=== PATIENT | female | born 1970 | race Caucasian/White ===

== ENCOUNTER 2018-10-13 17:41 | Emergency (ER) | payer OTHER ==
[2018-10-13 18:27] LABS: Basophils % (Auto) 0.5 % (0.0-1.8); Eosinophils # (Auto) 0.3 K/mm3 (0.0-0.4); Eosinophils % (Auto) 3.1 % (0.0-4.3); Hematocrit 35.9 % (30.3-42.9); Hemoglobin 11.4 gm/dl (10.1-14.3); Lymphocytes # (Auto) 2.3 K/mm3 (1.2-5.4); Mean Corpuscular HGB Conc 32 % (30-34); Mean Corpuscular Volume 76 fl (79-97); Monocytes # (Auto) 0.4 K/mm3 (0.0-0.8); Monocytes % (Auto) 4.6 % (0.0-7.3); Platelet Count 228 K/mm3 (140-440); Red Blood Count 4.72 M/mm3 (3.65-5.03)
[2018-10-13 18:46] LABS: BUN/Creatinine Ratio 10; Blood Urea Nitrogen 8 mg/dL (7-17); Calcium 9.6 mg/dL (8.4-10.2); Hemolysis Index 7
--- NOTE | 2018-10-13 19:21 | Emergency Department Report ---
ED Syncope HPI - General Chief Complaint: Syncope Stated Complaint: SYNCOPE Time Seen by Provider: 10/13/18 17:51 - History of Present Illness Initial Comments: Mrs. Reaves is a 48-year-old female with history of borderline diabetes, GERD, mental disorder who presents from [facility] with recurrent syncope. She has been evaluated by her primary physician according to her report for recurrent syncope. CT head and rheumatological workup have been recommended. However she is currently under 1013 involuntary commitment at [facility]. She's had 2 episodes of syncope. She denies preceding chest pain or palpitations. She denies shortness of breath. She denies leg pain. She denies recent travel. She is very frustrated because she had not been sent to the ER earlier. She states that for the last 2 dasy she felt something was wrong. Timing/Prior Episodes: recent history, remote history Precipitating Factors: Positive: none Context: sitting, standing, emotional stress Loss of Consciousness: brief (seconds) Current Symptoms: back to normal - Related Data Allergies/Adverse Reactions: Allergies Penicillins Allergy (Verified 10/13/18 18:04) Unknown ED Review of Systems ROS: Stated complaint: SYNCOPE Other details as noted in HPI Comment: All other systems reviewed and negative Constitutional: denies: diaphoresis, fever, malaise Respiratory: denies: cough, shortness of breath ED Past Medical Hx - Past Medical History Previous Medical History?: Yes Hx Diabetes: Yes (PreDM) Hx Psychiatric Treatment: Yes (Depression) - Surgical History Past Surgical History?: Yes Additional Surgical History: abd - Social History Smoking Status: Current Some Day Smoker Substance Use Type: None ED Physical Exam - General Limitations: No Limitations General appearance: alert, in no apparent distress - Head Head exam: Present: atraumatic, normocephalic - Eye Eye exam: Present: normal appearance - ENT ENT exam: Present: mucous membranes moist - Neck Neck exam: Present: normal inspection, full ROM - Respiratory Respiratory exam: Present: normal lung sounds bilaterally. Absent: respiratory distress, wheezes, rales, rhonchi - Cardiovascular Cardiovascular Exam: Present: regular rate, normal rhythm, normal heart sounds. Absent: systolic murmur, diastolic murmur, rubs, gallop - GI/Abdominal GI/Abdominal exam: Present: soft, normal bowel sounds. Absent: distended, tenderness, guarding, rebound - Extremities Exam Extremities exam: Present: normal inspection - Back Exam Back exam: Present: normal inspection - Neurological Exam Neurological exam: Present: alert, oriented X3 - Psychiatric Psychiatric exam: Present: normal affect, normal mood - Skin Skin exam: Present: warm, dry, intact, normal color. Absent: rash ED Course Vital Signs 10/13/18 10/13/18 17:50 18:42 Temperature 98.9 F Pulse Rate 80 98 H Respiratory 12 16 Rate Blood Pressure 133/76 Blood Pressure 130/36 [Right] O2 Sat by Pulse 98 98 Oximetry ED Medical Decision Making - Lab Data Result diagrams: 10/13/18 18:07 10/13/18 18:07 - EKG Data -: EKG Interpreted by Me EKG shows normal: sinus rhythm, axis, intervals, QRS complexes, ST-T waves Rate: normal - EKG Data 10/13/18 19:18 NSR nl rate nl axis nl intervals no ST-T signs of ischemia no ST elevation rate 80 bpm - Radiology Data Radiology results: report reviewed interpreted by me: CT head: NAP - Medical Decision Making Recurrent syncope: PERC negative for PE. Nurse observed brief syncopal episode. Lasted 5 seconds. No arrhythmia on animal physiologist during the episode. No indication of seizure. dc'd back to [facility] Critical care attestation.: If time is entered above; I have spent that time in minutes in the direct care of this critically ill patient, excluding procedure time. ED Disposition Clinical Impression: Syncope Disposition: [id number]/TX-[id number] ANOTHER TYPE HLTHCARE Is pt being admited?: No Does the pt Need Aspirin: No Condition: Stable Instructions: Syncope (ED)
[2018-10-13] MEDS ORDERED: ZITHROMAX PO ONE (19:46)
[2018-10-13] MEDS ORDERED: DELTASONE PO ONE (19:46)
--- NOTE | 2018-10-13 20:04 | Cat Scan Report ---
PROCEDURE: CT HEAD/BRAIN WO CON TECHNIQUE: Computerized tomography of the head was performed without contrast material. CT DOSE LENGTH PRODUCT: 1035.5 mGycm HISTORY: syncope COMPARISONS: None . FINDINGS: Brain: Brain density appears normal. No evidence of intracranial hemorrhage. No parenchymal hemorr kelly, mass lesions or mass effect are seen. No abnormal extra-axial fluid collects or masses are see n. There is minimal nonspecific mineralization of the basal ganglia. Ventricles: Ventricles are normal size and are midline. Bone Windows: No evidence of skull fracture. Paranasal sinuses: Mucosal thickening visualized in the medial aspect the right frontal sinus. Visual ized paranasal sinuses otherwise are clear. Mastoid air cells: Clear. IMPRESSION: Negative unenhanced CT scan of the brain. Minimal paranasal sinus disease as described. This document is electronically signed by Andrea Lawrence MD., October 13 2018 08:02:19 PM ET
[2018-10-13 20:50] VITALS: BP 128/77
== END 2018-10-13 21:00 | disposition other institution (70) ==
LOC: ED 17:41
DX: R55 Syncope and collapse (principal); F17.200 Nicotine dependence, unspecified, uncomplicated; F32.9 Major depressive disorder, single episode, unspecified; E11.9 Type 2 diabetes mellitus without complications; K21.9 Gastro-esophageal reflux disease without esophagitis; Z88.0 Allergy status to penicillin
CPT/HCPCS: 36415; 70450; 80048; 85025; 93005; 93010; 99285; J7512